=== PATIENT | male | born 1945 | race Caucasian/White ===

== ENCOUNTER 2022-06-04 06:18 | Inpatient (IN) | payer OTHER, MEDICARE, SELFPAY ==
[2022-05-31 07:55] VITALS: BMI 27.3
[2022-06-04] VITALS (11 sets, daily range): BP systolic 92–130; BP diastolic 54–91; PULSE 71–103; RESP 12–19; TEMP 36.2–37.5; O2SAT 92–97; BMI 28.9
--- NOTE | 2022-06-04 | PATH_ITS ---
[facility] Accession Number: [id number] No. of containers..01 Tissue . 01 Material submitted: . prostate - PROSTATE . 01 Diagnosis: Prostate (110 grams), Transurethral Resection: Benign prostatic parenchyma with glandular and stromal hyperplasia. No evidence of malignancy in the outbound telemarketing representative sections examined. MRV 06/11/2022 1240 Local . 01 Electronically signed: . Sona King MD, Pathologist NPI- [id number] . 01 Gross description: . Received in formalin labeled prostate is a 110-gram markedly distorted, nodular simple prostatectomy specimen which measures 6.0 cm from apex to base, 5.7 cm from right to left, and 4.7 cm from anterior to posterior. The right half is marked with black ink, and the left half with blue ink. The specimen is bisected into right and left halves revealing a 5.5 cm in length by up to 2.5 cm in width urethra with focally hemorrhagic, rojas mucosa. Each half is then serially sectioned proceeding from apex to base revealing a multinodular pink-rojas cut surface with the nodules ranging up to 1.5 cm in greatest dimension. There are no areas of orange/gold discoloration or discrete masses grossly identified. Route Service Manager sections from each half are proceeding from apex to base with the right half submitted in A1-A5, and the left half submitted in A6-A10. ([id number]) /MRV 06/06/2022 1320 Local . 01 Pathologist provided ICD-10: N40.1 . 01 CPT . 728187 Specimen Comment: A courtesy copy of this report has been sent to [phone] Performed at: 01 [facility] [address] [place] [address], [place], [place] [id number] MD Fredrick Osborne MD Phone: [phone]
--- NOTE | 2022-06-04 07:14 | P.OP.PRE_ITS ---
Pre-operative Note COVID-19 Criteria for continued procedure: Expected advancement of disease process, Possibility delay results in more complex future surgery or treatment, Increased loss of function, Deterioration of the patient's condition or overall health, Delay expected to result in less-positive ultimate med/surg outcome and Non- surgical alternatives not available or appropriate per current SOC Interval Note History & Physical reviewed/Exam performed by Physician: Yes Changes to H&P: No
[2022-06-04] MEDS: LACTATED RINGERS 1,000 ML 21 ML IV ×2 (07:19→09:37)
[2022-06-04 07:47] LABS: Hematocrit 39.6 % (41-53); Hemoglobin 13.6 g/dL (13.5-17.5)
[2022-06-04] MEDS: CEFAZOLIN 2 GM/100 ML PREMIX 100 ML IV (08:05)
[2022-06-04 08:07] LABS: COVID19 -Nasal RAPID Negative (Negative)
--- NOTE | 2022-06-04 09:03 | SUR.OPER ---
Supine on padded OR bed, head on pillow, arms secured on padded arm boards at <90 degrees abduction, legs uncrossed, safety belt at thigh
[2022-06-04] MEDS: TRANEXAMIC ACID 1,000 MG in SODIUM CHLORIDE 0.9% 100 ML 200 MG IV (09:14)
[2022-06-04] MEDS: BUPIVACAINE 0.5% W/ EPI (PF) 30 ML VIAL INJ (09:20)
[2022-06-04] MEDS: BUPIVACAINE LIPOSOME 266 MG/20 ML VIAL INJ (09:33)
--- NOTE | 2022-06-04 10:35 | PM.OP.1 ---
Operative Date/Time/Diagnoses Date of procedure: 06/04/22 Time of procedure: 10:25 Pre-op diagnosis: 1. Bladder outlet obstruction. 2. Bladder calculi. Post-op diagnosis: same Procedure & Clinicians Procedure: 1. Simple open prostatectomy. 2. Open vesical lithotomy Same procedure as scheduled: Yes Indications: 1. Bladder outlet obstruction. 2. Bladder calculi. Surgeon: Harjeet Noel Drop Forger Helper: Cristina Lilly Click Yes if Unassisted: No Anesthesia Type: General, Spinal (Duramorph spinal) and Local (0.25% Marcaine with epinephrine and diluted 1.33% Exparel.) Operative Notes Findings: 1. Normal midline lower abdominal wall tissue planes. 2. Multiple variably sized calculi within the bladder measuring up to 1.5 cm. 3. Markedly enlarged prostate with impressive circumferential intravesical protrusion. Closure Type: primary Specimen(s): other (1. Prostate adenoma 2. Bladder calculi ) Applied: catheter (Twenty-two Anguillan three-way hematuria catheter.) Estimated Blood Loss (mL): 500 Blood products transfused: none Procedure in detail: The operative intervention required a surgical elastic knitter to assist in retraction, suturing, hemostasis, and appropriate exposure to tissue planes. The patient received Duramorph spinal and then was positioned in supine and administered general anesthesia. The abdomen, genitalia, and groin were then prepped and draped in sterile fashion. A 20 Anguillan Solano catheter was inserted into the bladder and the balloon was inflated 10 cc. A specimen was obtained for urinalysis and reflex culture. The bladder was then filled with approximately 400 cc of sterile saline and clamped for retention. A midline infraumbilical incision was then made above the pubic symphysis and continue through the midline lower abdominal wall using sharp, blunt, and cautery technique. The space of Retzius and pelvic retroperitoneum were then entered. The anterior and superior aspect of the bladder was exposed using blunt technique. 0.25% Marcaine with epinephrine was then used to infiltrate the midline anterior bladder wall. A cystotomy was then performed using the cautery pen. The cystotomy was then extended from dome to just above the bladder neck using blunt and sharp technique. Appropriate exposure was obtained. Multiple bladder calculi were removed from the lumen of the bladder and submitted for analysis. 0.25% Marcaine was then used to infiltrate the mucosa and smooth muscle around the bladder neck circumferentially. The cautery pen was then used to divide the mucosa and bladder neck smooth muscle down to the level of the adenoma. Appropriate plane was developed circumferentially around the prostate adenoma. A 0 Vicryl suture was utilized and overhand fashion as needed for mobilization and manipulation of the prostate adenoma during dissection. Eventually the index finger was able to reach the prostate apex and the urethra was divided bluntly at this level. Prostate adenoma was then submitted to pathology for routine gross and microscopic examination. The prostate fossa was then packed with lap sponges and pressure held for 5 minutes. The lap sponges were then removed and the prostate fossa inspected. There was 1 area requiring a [id number] 2-0 Monocryl to the right and lateral. Next the same 2-0 Monocryl was used to secure the free edge of the posterior bladder neck to the posterior prostatic capsule at a proximally its mid point. A [address] hematuria catheter was then selected and advanced the lower urinary tract over catheter guide and guided up through the prostatic fossa and into the bladder with the index finger of the opposite hand. The catheter guide was removed. A 2 layer closure of the cystotomy was performed. An inner, mucosa muscular running intermittently locking closure was performed with 2-0 Monocryl. The same 2-0 Monocryl was then used to provide a seromuscular closure utilizing a vertical mattress Lembert technique. The catheter balloon was then inflated to 30 cc. It was hand irrigated and found to clear readily without clot. A catheter plug was placed in the inflow port and the outflow port was connected gravity drainage. Next, an 18 Anguillan (15 Anguillan on backward) fenestrated Ezio drain was positioned in the space of Retzius through a separate stab incision to the right of the midline incision. The drain was secured to the skin with 2-0 chromic Russell sandal technique in usual fashion. Next the skin layer and rectus fascial layer was infiltrated with Exparel. 0 PDS was used to close the rectus fascia in running fashion. One suture placed at the superior apex, the other suture placed at the inferior apex and each for run to approximately the midpoint of the incision and tied to 1 another in buried fashion. Isaiah's fascia was then closed with running 3-0 Vicryl. The skin was reapproximated using a running subcuticular 4-0 Monocryl. The skin surface was cleaned and dried. Telfa was then trimmed and tailored appropriately to fit along the midline incision as well as covering the drain site. Over this transparent Op site was applied. The patient was then awakened, transferred to [facility], and transported to PACU in stable condition. Complications: none Post-operative Condition: stable Disposition: PACU Plan for aftercare: Admit to acute care.
[2022-06-04] MEDS: OXYCODONE IR 5 MG TABLET PO (11:09)
[2022-06-04] MEDS: LACTATED RINGERS 1,000 ML 125 ML IV ×2 (11:30→19:55)
[2022-06-04 12:18] LABS: Appearance Urine UA CLEAR; Bilirubin Urine UA NEGATIVE (NEGATIVE); Color Urine UA YELLOW; Glucose Urine UA NEGATIVE (Negative); Ketones Urine UA NEGATIVE (NEGATIVE); Leukocyte Esterase Urine UA NEGATIVE (NEGATIVE); Nitrite Urine UA NEGATIVE (Negative); Occult Blood Urine UA 2+ (Negative); Protein Urine UA NEGATIVE (Negative); Specific Gravity Urine UA 1.015 (1.000-1.035); Urobilinogen Urine UA 0.2 E.U./dL (0.2)
[2022-06-04 12:31] LABS: Bacteria Urine Occasional (0-1); Culture Indicated Urine Cult Not Indicated; RBC Urine 5-10/HPF (0-5/HPF); Squamous Epithelial Cell Urine None Seen (0-5/HPF); WBC Urine 0-1/HPF (0-5/HPF)
[2022-06-04 13:08] LABS: Estimated Glomerular Filt Rate > 60 mL/min (>60)
--- NOTE | 2022-06-04 17:25 | PC.NURSE ---
Addendum entered by Jennifer Ocampo R.N. 06/04/22 19:30: Patients ml is cdi and patient ambulated in the halls he is resting comfortably now. Original Note: Patient is alert and oriented, he is eager to ambulate in the halls. RUBBER BLOCK LAYER will do this soon. He has a 3 way lamb that is putting out bloody to pink urine. He denies pain. Abdomen is soft and not distended. is in room and patient has ivf. He has a liam drain that is putting out 25cc of bloody drainage. Patient is comfortable and denies pain.
[2022-06-04] MEDS: ACETAMINOPHEN 325 MG TABLET 650 MG PO (20:02)
[2022-06-04] MEDS: TAMSULOSIN 0.4 MG CAPSULE PO (20:02)
[2022-06-05 03:00] VITALS: BP 117/53; PULSE 79; RESP 18; TEMP 36.8; O2SAT 95
[2022-06-05] MEDS: LACTATED RINGERS 1,000 ML 125 ML IV (03:38)
--- NOTE | 2022-06-05 07:29 | P.PN_ITS ---
Subjective Subjective Date Patient Seen: 06/05/22 Time Patient Seen: 07:00 Interval history: The patient is a 77-year-old male admitted yesterday for simple open prostatectomy and open vesical lithotomy for bladder outlet obstruction, incomplete bladder emptying, and multiple bladder calculi. He is had 1 liquid bowel movement at approximately 6:00 a.m.. He tolerated general diet last evening. He expresses no pain complaints. Exam Vital Signs (past 8 hours): - 06/05/22 03:00 Temperature 98.2 F Pulse Rate 79 Respiratory Rate 18 Blood Pressure 117/53 L Pulse Oximetry 95 Oxygen Flow Rate 0 Oxygen Delivery Method Room Air Oxygen Flow Rate 0 Narrative Exam Narrative: Sitting upright comfortably in bed and in no distress. Chest-equal and unlabored expansion bilaterally. Heart-normal sinus rhythm. Abdomen-dressings are intact. LILO drain intact with scant serosanguineous output. Solano-intact and indwelling with light, pink tinged outflow without clot. Objective Labs 06/04/22 07:15 06/04/22 12:35 Labs: Laboratory Results - last 24 hr 06/04/22 06/04/22 06/04/22 06:50 07:15 07:15 Hgb 13.6 Hct 39.6 L Creatinine Estimated GFR Urine Color Urine Appearance Urine pH Ur Specific Columbia Urine Protein Urine Glucose (UA) Urine Ketones Urine Occult Blood Urine Nitrate Urine Bilirubin Urine Urobilinogen Ur Leukocyte Esterase Urine RBC Urine WBC Ur Squamous Epith Cells Urine Bacteria Ur Culture Indicated? SARS-CoV-2 (PCR) Negative Blood Type B Positive Antibody Screen Negative 06/04/22 06/04/22 12:21 12:35 Hgb Hct Creatinine 0.83 Estimated GFR > 60 Urine Color Yellow Urine Appearance Clear Urine pH 7.0 Ur Specific [place] 1.015 Urine Protein Negative Urine Glucose (UA) Negative Urine Ketones Negative Urine Occult Blood 2+ H Urine Nitrate Negative Urine Bilirubin Negative Urine Urobilinogen 0.2 Ur Leukocyte Esterase Negative Urine RBC 5-10/hpf H Urine WBC 0-1/hpf Ur Squamous Epith Cells None seen Urine Bacteria Occasional (0-1) Ur Culture Indicated? Cult not indicated SARS-CoV-2 (PCR) Blood Type Antibody Screen [facility] Medical History (Updated 05/21/22 @ 13:59 by Karla Looney RN) BPH (benign prostatic hyperplasia) BPH w urinary obs/LUTS Elevated PSA Excessive daytime sleepiness (~12/2017) Incomplete bladder emptying Male erectile dysfunction Obstructive sleep apnea of adult (~12/2017) Retention of urine Surgical History H/O vasectomy Family History Father Hypertension Social History marital status: number of children: 4 household members: spouse Smoking Status: Never smoker alcohol intake: current caffeine: Yes Assessment & Plan Assessment & Plan narrative: Assessment: 1. Stable postop day 1 status post simple open prostatectomy and open vesical lithotomy. 2. Pathology pending. Plan: 1. Increase diet and activity. 2. Follow-up on surgical pathology when final. Time Spent With Patient Critical Care time: I spent a total of [] minutes of critical care time on this patient's care to day; this time is exclusive of procedural time. Quality VTE Deep Vein Thrombosis/Pulmonary Embolism Present on Admission: No
[2022-06-05 09:00] VITALS: BP 126/76; PULSE 87; RESP 16; TEMP 37.6; O2SAT 91
[2022-06-05] MEDS: TAMSULOSIN 0.4 MG CAPSULE PO ×2 (09:44→20:13)
[2022-06-05] MEDS: FINASTERIDE 5 MG TABLET PO (09:45)
[2022-06-05] MEDS: ENOXAPARIN 40 MG/0.4 ML SYRINGE SUBCUT (09:45)
[2022-06-05] MEDS: ACETAMINOPHEN 325 MG TABLET 650 MG PO ×2 (09:51→20:13)
--- NOTE | 2022-06-05 11:13 | CM.DANOTE ---
DCP: Assessment: Patient is a 77yo male who admitted to hospital via pov under the care of Surgeon/Urologist for a pre-planned Prostatectomy. Pt has a hx of Bladder outlet obstruction. This CM met with patient in his room. Introduced self and role. Pt confirms that he lives with his on the [facility] of Saturday. He confirms that he drives and does not use dme. PCP, Cam Arrieta Insurance: Medicare A only, GEHA Plan: Home with when medically stable. Geovanna Palafox RN Case Manager Discharge Planning/Care Management Advanced directive, confirm from FAMILY Start: 06/04/22 11:41 Freq: Q24H Status: Active Protocol: Document 06/04/22 13:28 CLL (Rec: 06/04/22 13:35 CLL [id number]) Advance Directive, confirm on record Time 13:35 Person contacted patient Copy received No CM Discharge Assessment Start: 06/05/22 11:10 Freq: Status: Active Protocol: Document 06/05/22 11:10 JS (Rec: 06/05/22 11:13 JS [id number]) Discharge Planning Assessment Assigned Sound Engineering Technician Geovanna Palfaox RN Case Manager Advance Directives? Yes Advance Directives on File No History Provided By Patient,Medical Record Has Patient been admitted in last 30 No days? Prior Living Arrangements House Household Members spouse Type of transporation used prior to Drives own vehicle admit Independent with ADL's Yes Is patient alert and oriented? Yes Caregiver for Another No Barriers to Discharge No Discharge Plan Home Transportation Arrangement will provide transportation Referrals Initiated None needed Whiteboard Updated in Patient Room with Yes name and ext. # of Sound Engineering Technician Review Status In Process Next Review Type Continued Stay Review Pre-Anesthesia Assessment Start: 05/21/22 13:56 Freq: Status: Active Protocol: Document 05/31/22 07:55 CAB (Rec: 05/21/22 14:14 CAB [id number]) Pre-Anesthesia Assessment PAC Comment Pt unable to complete scheduled phone call on 05/21/22 , [place]. Unable to reach pt for scheduled second PAC call, chart review only. Preferred Name Rodriguez Patient Information Reviewed Via Chart Review,Phone Assessment Assessment Completed With Patient Primary Care Provider Cam Arrieta Seen Specialist in Last 12 Months Yes Specialist Seen Urologist Primary Language Mongolian Content Administrator Required No Height 172.72 cm Weight 81.647 kg Body Mass Index (BMI) 27.3 Anesthesia Review Requested No Rn Obgyn No alcohol intake never Smoking Status Never smoker Patient is completely paralyzed or No completely immobile Mental Status Oriented to own ability Hx Sleep Apnea Yes Sleep apnea treatment Oral appliance Currently Taking a Beta Melissa No Anti-Coagulant Therapy No Cardiac Testing No Hx Pacemaker/ICD No Pacemaker Rep Required? No Cardiac Clearance Received Not Applicable Bladder Pattern Retention Urinary Catheter Present No Hx Urinary Self Catheterization No Diabetes No Marital Status Lives With spouse Patient Discharge Plan Description Return Home Comment Pt advised 2 day length of stay per surgeon Additional comment Lives on [facility]
[2022-06-05 13:00] VITALS: BP 123/67; PULSE 75; RESP 17; TEMP 36.7; O2SAT 97
[2022-06-05] MEDS: IBUPROFEN 600 MG TABLET PO ×2 (17:03→23:37)
[2022-06-05 17:14] VITALS: BP 137/80; PULSE 81; RESP 14; TEMP 37.4; O2SAT 95
[2022-06-05 20:00] VITALS: BP 117/62; PULSE 77; RESP 18; TEMP 35.9; O2SAT 97
[2022-06-06] VITALS: BP 112/66; PULSE 68; RESP 17; TEMP 36.1; O2SAT 96
[2022-06-06] MEDS: ACETAMINOPHEN 325 MG TABLET 650 MG PO (03:56)
[2022-06-06 04:00] VITALS: BP 119/59; PULSE 69; RESP 16; TEMP 35.8; O2SAT 97
[2022-06-06] MEDS: IBUPROFEN 600 MG TABLET PO (05:39)
[2022-06-06 08:00] VITALS: BP 110/64; PULSE 73; RESP 17; TEMP 35.9; O2SAT 95
--- NOTE | 2022-06-06 09:01 | PM.DS.1 ---
History of Present Illness History of Present Illness Date Patient Seen: 06/06/22 Time Patient Seen: 07:10 Chief complaint: Prostatectomy Narrative: The patient is a 77-year-old gentleman that was admitted on 06/04/2022 and underwent uncomplicated simple open prostatectomy and open vesical lithotomy under Duramorph spinal and general anesthesia. Prior to admission he had had a long history of progressively advancing mixed obstructive and irritative voiding symptoms, progressive incomplete emptying due to failure medical therapy. Discharge Providers Provider Date of admission: 06/04/22 06:18 Discharge Date: 06/06/22 Primary care physician: Cam Arrieta MD Discharge provider: Harjeet Noel MD Summary Hospital Course Discharge Diagnosis: 1. Bladder outlet obstruction secondary to prostate. 2. Multiple bladder calculi. 3. Failure medical therapy. Hospital Course: Patient was admitted on 06/04/2022 and underwent uncomplicated simple open prostatectomy and vesical lithotomy under Duramorph spinal and general anesthesia. His postoperative course was entirely unremarkable in that he tolerated a general diet, had return of bowel function, ability to ambulate and transfer independently, and required no narcotic analgesics on the 1st postoperative day. On the morning of 06/06/2022 he was provided routine post prostatectomy activity, hygiene, and driving restrictions/instructions. Discharge prescriptions were explained with their known common side effects, precautions, and intake or administration instructions. Pathology was pending at discharge. Exam Vital Signs (past 8 hours): - 06/06/22 04:00 Temperature 96.5 F L Pulse Rate 69 Respiratory Rate 16 Blood Pressure 119/59 L Pulse Oximetry 97 Oxygen Delivery Method Room Air Oxygen Flow Rate 0 Narrative Exam Narrative: He is sitting upright comfortably in bed and in no distress. He voices no complaints. Chest-equal and unlabored expansion bilaterally. Heart-normal sinus rhythm. Abdomen-dressings and LILO drain are intact. The LILO drain is stripped with no additional scant serosanguineous output seen. Solano-light maroon output without clot. Catheter was secured to the right inner thigh without tension. Extremity no edema, cyanosis, or clubbing. Objective Labs 06/04/22 07:15 06/04/22 12:35 [facility] Medical History BPH (benign prostatic hyperplasia) BPH w urinary obs/LUTS Elevated PSA Excessive daytime sleepiness (~12/2017) Incomplete bladder emptying Male erectile dysfunction Obstructive sleep apnea of adult (~12/2017) Retention of urine Surgical History H/O vasectomy Family History Father Hypertension Social History marital status: number of children: 4 household members: spouse Smoking Status: Never smoker alcohol intake: current caffeine: Yes Discharge Assessment & Plan Assessment and Plan Assessment: 1. Stable postoperative day 2 status post simple open prostatectomy and open vesical lithotomy. 2. Solano catheter. 3. Pathology pending. Plan of Treatment: 1. Discharge home today. 2. Catheter care and use instruction prior to discharge and as ordered. 3. Follow-up discussion of surgical pathology when final in outpatient setting. 4. Follow-up appointments in the Urology Clinic to be arranged telephonically post discharge. Discharge Plan Discharge Plan Patient Disposition: Home Provider Discharge Comment: Please contact the urology clinic to schedule postoperative follow-up appointments. Discharge orders & Medications Prescriptions: New oxycodone 5 mg Tablet 5 mg PO Q4H PRN (Reason: Pain, Moderate (4-6)) Qty: 20 0RF enoxaparin [Lovenox] 40 mg/0.4 mL Syringe 40 mg SUBCUT DAILY Qty: 12 0RF ciprofloxacin HCl 250 mg tablet 250 mg PO Q12H Qty: 6 0RF Rx Instructions: Begin in the morning, the day before scheduled catheter removal. 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 Qty: 1 0RF Dose Instruction: As directed Rx Instructions: As directed omega-3 fatty acids [Fish Oil Concentrate] 1,000 mg capsule 1,000 mg PO DAILY acetaminophen 325 mg Tablet 650 mg PO DAILY PRN (Reason: Pain) ibuprofen 200 mg Tablet 200 mg PO DAILY PRN (Reason: Pain) tamsulosin 0.4 mg capsule 0.4 mg PO BID finasteride 5 mg tablet 5 mg PO DAILY multivitamin Tablet 1 tab PO DAILY Follow up/Referrals: Cam Arrieta MD [Primary Care Provider] - Harjeet Noel MD [Physician] - (please contact urology office to schedule post operative appointments) Diet/Activity/Treatments Diet: Diet as Tolerated Activity: Do not lift objects greater than 15 lb x 4 weeks. Catheter: 2-way Solano Catheter comment: Large bag for in-home and night use. Leg bag for use when out of home. Skin/Wound/Dressing Care Skin care: Leave incision open to air. Report to your healthcare provider any signs of infection, such as:: chills, fever, night sweats, increased pain, unusual drainage and unusual redness Visit Report/Discharge Packet Instructions: How to Care for Your Solano Catheter -- Male, DI for Constipation, How to Prevent Falls, DI for Prescription Opioid Use, DI for Taking Pain Medication, Enoxaparin Injection Discharge Data Primary Care Provider: Cam Arrieta VTE Deep Vein Thrombosis/Pulmonary Embolism Present on Admission: No
[2022-06-06] MEDS: TAMSULOSIN 0.4 MG CAPSULE PO (09:27)
[2022-06-06] MEDS: FINASTERIDE 5 MG TABLET PO (09:27)
[2022-06-06] MEDS: ENOXAPARIN 40 MG/0.4 ML SYRINGE SUBCUT (09:27)
--- NOTE | 2022-06-06 12:38 | PC.NURSE ---
Discharge note: Patient teaching done at bedside with spouse regarding new Leg bag care and changing out the cath bag. Discharge teaching done with new medications and cath care. Patient and spouse state understanding of instructions. Patient drain was pulled and IV is d/c'd, pt mauri. well. VSS, patient in shower before d/c from hosp.
[2022-06-07 11:36] LABS: Ca oxalate dihydrate 90 % (.); Ca oxalate monohydr 10 % (.); Size 6x6 mm (.)
--- NOTE | 2022-08-07 07:52 | PM.HP.1 ---
History of Present Illness History of Present Illness Chief complaint: Prostatectomy Narrative: The patient is a 77-year-old gentleman that was admitted on 06/04/2022 and underwent uncomplicated simple open prostatectomy and open vesical lithotomy under Duramorph spinal and general anesthesia. Prior to admission he had had a long history of progressively advancing mixed obstructive and irritative voiding symptoms, progressive incomplete emptying due to failure medical therapy. [facility] Medical History (Updated 08/07/22 @ 07:57 by Harjeet Noel MD) Bladder calculus BPH (benign prostatic hyperplasia) BPH w urinary obs/LUTS Elevated PSA Excessive daytime sleepiness (~12/2017) Incomplete bladder emptying Male erectile dysfunction Obstructive sleep apnea of adult (~12/2017) Retention of urine Surgical History H/O vasectomy Family History Father Hypertension Social History marital status: number of children: 4 household members: spouse Smoking Status: Never smoker alcohol intake: current caffeine: Yes Meds Home Medications and Allergies Home Medications Medication Instructions Recorded Confirmed Type Oral appliance for mild PAOLA G47.33 #1 ea 08/25/18 07/25/22 Rx omega-3 fatty acids 1,000 mg 1,000 mg PO DAILY 02/19/20 07/25/22 History capsule (Fish Oil Concentrate) multivitamin 1 tab PO DAILY 03/01/21 07/25/22 History acetaminophen 325 mg tablet 650 mg PO DAILY PRN Pain 05/21/22 07/25/22 History ibuprofen 200 mg tablet 200 mg PO DAILY PRN Pain 05/21/22 07/25/22 History Allergies Allergy/AdvReac Type Severity Reaction Status Date / Time No Known Drug Allergies Allergy Verified 07/25/22 13:12 Exam Vital Signs (past 8 hours): Oxygen Delivery Method Nasal Cannula Oxygen Flow Rate 0 Objective Labs 06/04/22 07:15 06/04/22 12:35 Assessment & Plan Assessment and plan (1) BPH w urinary obs/LUTS: Status: Acute (2) Incomplete bladder emptying: Status: Acute (3) Bladder calculus: Status: Acute Plan [facility] [id number] Urology Office Visit Signed Patient: Cachorro Smith MR#: [id number] : 1945 Acct:[id number] Age/Sex: 77 / M Loc: URO? Attending Dr: Harjeet Noel MD Intake Intake Intake- [facility]incial Staff Intake performed by: Roselia Bañuelos Reason For Visit Visit Reasons:?Cysto/PUS,PVR Intake Note: 77 y/o M presents to clinic for cystoscopy. PUS. PVR. 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 04/26/2312:02 BP 171/105 H Blood Pressure Location Lt brachial Position Sitting Respiration 16 Pulse 83 Pulse Source Monitor Pulse Oximetry (%) 95 Oxygen Delivery Method room air HPI Chief Complaint Chief Complaint: BPH/LUTS HPI Details: Rodriguez is a 77-year-old fellow presenting today for schedule cystoscopy/PUS for severe lower urinary tract symptoms, incomplete bladder emptying, despite maximal medical therapy with tamsulosin 0.4 mg b.i.d. and long-term finasteride 5 mg p.o. q.day. He denies interval new complaints.? Urinalysis today is clear.? PVR is 400 cc. PFSH Medical History?(Updated 04/26/22 @ 15:10 by Harjeet Noel MD) BPH (benign prostatic hyperplasia) BPH w urinary obs/LUTS Elevated PSA Excessive daytime sleepiness (~12/2017) Incomplete bladder emptying Male erectile dysfunction Obstructive sleep apnea of adult (~12/2017) Retention of urine Surgical History? H/O vasectomy Family History? Father Hypertension Social History? marital status:? number of children:? 4 Smoking Status:? Never smoker alcohol intake:? never caffeine:? Yes ROS Const All systems reviewed & are unremarkable except as noted in HPI and below Exam Exam Narrative Exam Narrative: He is a well-developed, well-nourished elderly fellow in no acute distress.? Head/neck-sclera are clear pupils are round and equal bilaterally.? Neck exam limited by an abundance of facial and neck care. Chest-equal and unlabored expansion bilaterally.? Heart-normal sinus rhythm.? Abdomen-protuberant saw.? Bowel tones are normal.? No palpable mass, hernia, or tenderness. Genitalia-unchanged normal adult circumcised male. Office Procedures Procedure performed by: Roselia Bañuelos Residual: post void Bladder volume: PVR = 400ml Billing- Post Void Residual: Post Void Residual- [id number] Informed consent given: Yes Consent signed: Yes Procedure Notes: OFFICE CYSTOSCOPY male: The patient was positioned supine and the lower abdomen, genitalia, and groin were prepped and draped in sterile fashion. ?Using sterile technique and video assistance lower tract flexible endoscopy was performed with the findings as described below. FINDINGS: Urethra-normal caliber without stricture or lesion. External sphincter-coapted urothelium Prostate-6 cm length with obstructing trilobar. Bladder-2+ trabeculation.? Normal orifices.? At least 20 individual calculi were visualized lying dependently at the bladder base behind a markedly enlarged and impressive protruding intravesical median lobe.? No evidence of diverticulum tumor. Informed consent given: Yes Consent signed: Yes Procedure Notes: PROSTATE ULTRASOUND: The patient was positioned in left lateral decubitus position and the transrectal ultrasound probe was inserted into the rectal vault. ?Transverse and sagittal imaging was obtained at multiple levels. ?Maximum dimensional measurements were made in the transverse and sagittal planes with the findings as listed below. FINDINGS: Urethral length-7.46 cm Prostate volume-192.94 cc predicted PSA= 23.15 Results Urine Dipstick Urine Appearance Clear ? ? Last Edit by Roselia Bañuelos RN on 04/26/22 12:55 Urine Bilirubin Negative ? ? Last Edit by Roselia Bañuelos RN on 04/26/22 12:55 Urine Blood Negative ? ? Last Edit by Roselia Bañuelos RN on 04/26/22 12:55 Urine Color Yellow ? ? Last Edit by Roselia Bañuelos RN on 04/26/22 12:55 Urine Glucose Negative mg/dL ? Last Edit by Roselia Bañuelos RN on 04/26/22 12:55 Urine Ketones Negative ? ? Last Edit by Roselia Bañuelos RN on 04/26/22 12:55 Urine Leukocyte Esterase Negative ? ? Last Edit by Roselia Bañuelos RN on 04/26/22 12:55 Urine Nitrate Negative ? ? Last Edit by Roselia Bañuelos RN on 04/26/22 12:55 Urine pH 6.0 ? ? Last Edit by Roselia Bañuelos RN on 04/26/22 12:55 Urine Protein Negative ? ? Last Edit by Roselia Bañuelos RN on 04/26/22 12:55 Urine Specific [place] 1.015 ? ? Last Edit by Roselia Bañuelos RN on 04/26/22 12:55 Urine Urobilinogen - ? 0.2 mg/dL ? ? Last Edit by Roselia Bañuelos RN on 04/26/22 12:55 Assessment & Plan (1) BPH w urinary obs/LUTS: ?Status:?Acute ?Code(s): N40.1 - Benign prostatic hyperplasia with lower urinary tract symptoms; N13.8 - Other obstructive and reflux uropathy (2) Incomplete bladder emptying: ?Status:?Acute ?Code(s): R33.9 - Retention of urine, unspecified Plan 1. Schedule SIMPLE OPEN PROSTATECTOMY/OPEN VESICAL LITHOTOMY. 2. Continue tamsulosin 0.4 mg b.i.d. for now.? 3. Continue finasteride 5 mg p.o. q.day for now.? 4. Adopt and implement Crede' as explained and implemented in clinic today. Reviewed findings, discussed impression, utilized Medical illustrations and anatomic models to facilitate explanation of pertinent procedural findings and anatomy today.? Discussed options which are limited to CIC or simple open prostatectomy.? He voiced interest in the latter.? Explain common side effects, possible complications, perioperative limitations/restrictions, and reasonable expectations of outcomes and recovery following simple open prostatectomy.? He had a couple of additional clarifying questions and concerns, mainly related to logistics pertaining to coordination of surgery hospitalization and [place] His concerns were addressed to his immediate satisfaction today and he indicates a desire to proceed as discussed. Review of clinical chart no history, patient data, who and PSA library for encounter-10 minutes [id number] encounter exclusive of performance of cystoscopy and prostate ultrasound-35 minutes Encounter documentation, coordination of surgical scheduling, and billing-10 minutes ? ? ? Orders: Orders POC Urine Dip Today N13.8 - Other obstructive and reflux uropathy, N40.1 - Benign prostatic hyperplasia with lower urinary tract symptoms ? Quality VTE Deep Vein Thrombosis/Pulmonary Embolism Present on Admission: No
== END 2022-06-06 14:10 | disposition home or self-care (01) | DRG 663 ==
PROVIDERS: Admitting Provider Specialist; PCP Student in an Organized Health Care Education/Training Program; Referring Provider Specialist; Visit Provider Specialist
PROC: 0VT00ZZ Resection of Prostate, Open Approach (ICD-10-PCS; principal; 2022-06-04 07:45)
DX: N32.0 Bladder-neck obstruction (principal); N13.8 Other obstructive and reflux uropathy; N21.0 Calculus in bladder; N40.1 Benign prostatic hyperplasia with lower urinary tract symptoms; Z20.822 Contact with and (suspected) exposure to COVID-19
CPT/HCPCS: 36415; 51050; 55821; 81001; 82365; 82565; 85014; 85018; 86850; 86900; 86901; 87635; C9803; C9290; J0690; J1650; J2250; J2274; J2704; J3010

== ENCOUNTER → 2022-07-25 13:11 | Outpatient (CLI) | payer OTHER, SELFPAY ==
[2022-06-04 06:43] VITALS: BMI 28.9
== END ==
PROVIDERS: PCP Student in an Organized Health Care Education/Training Program; Visit Provider Specialist
DX: N13.8 Other obstructive and reflux uropathy (principal); N40.1 Benign prostatic hyperplasia with lower urinary tract symptoms; R33.9 Retention of urine, unspecified; Z87.448 Personal history of other diseases of urinary system
CPT/HCPCS: 51798; 81002; 87077; 87086; 87186